=== PATIENT | male | born 1950 | race Caucasian/White ===

== ENCOUNTER 2016-11-30 10:42 | Day surgery (SDC) | payer MEDICARE ==
[~2016-11-30] VITALS: Ht 177.8 cm; Wt 98.9 kg
[~2016-11-30 10:42] MED LIST: AMLO10TA5 PO; ASPI-973 PO; CHOL500011 PO; CLOP75TA3 PO; CYAN500T53 SL; GABA-502 PO; LEVO75TA4 PO; LISI-571 PO; Lactated Ringer's 1,000 ML IV ONE; OMEP20CA11 PO; TIZA2CAP9 PO; TIZA4TAB4 PO
[2016-11-30] MEDS ORDERED: Propofol 10,000 mCg/mL 20 mL Inj ONE (10:43)
[2016-11-30 11:07] VITALS: BP 160/87; PULSE 67; RESP 16; O2SAT 96
[2016-11-30] MEDS ORDERED: Ondansetron 2 mg/mL 2 mL Inj IVPUSH PRN (11:25)
[2016-11-30] MEDS ORDERED: MetoCLOpramide 5 mg/mL 2 mL Inj IVPUSH PRN (11:25)
[2016-11-30] MEDS ORDERED: Lactated Ringer's 1,000 ML IV SCH (11:25)
[2016-11-30 11:59] VITALS: BP 149/81; PULSE 67; RESP 17; O2SAT 96
[2016-11-30 12:09] VITALS: BP 122/74; PULSE 77; RESP 15; O2SAT 96
[2016-11-30 12:19] VITALS: BP 164/85; PULSE 62; RESP 16; O2SAT 96
--- NOTE | 2016-11-30 16:45 | PCM.HPANE ---
Patient Data Surgeon Admitting Provider: Attending Provider:Pedrito Recinos MD Primary Care Physician:Ricky Green MD Other Provider:[facility] Reason for Visit Rectal Bleeding Ht/WT & BMI Height (Feet): 5 Height (Inches): 10 Weight (Kilograms): 98.88 Body Mass Index 31.00 Allergies Coded Allergies: No Known Allergies (Verified , 11/27/16) Uncoded Allergies: No Known Allergies (Allergy, Unknown, 09/26/03) Past Anesthesia History Anesthesia History: Positive for:: Abnormal Airway, Difficult Intubation, Denies:: Anesthesia Reactions, Fam Anesthesia Reaction, Fam Malignant Hypertherm, Malignant Hyperthermia Diabetes History Hx Diabetes?: No MRSA MRSA: No Medications Blood Thinner: Plavix Last Dose Blood Thinner: Nov 24, 2016 Reported Medications Clopidogrel Bisulfate (Plavix)75 Mg Jvqiqf68 Mg PO DAILY 30 Days Ref 0 11/27/16 Cholecalciferol (Vitamin D3) (Vitamin D3)5,000 Unit Tablet5,000 Unit PO DAILY 11/27/16 Cyanocobalamin (Vitamin B-12) (Vitamin B-12)500 Mcg Tab.[id number] Mcg SL 11/27/16 Tizanidine 4 Mg Tablet4 Mg PO q6 11/27/16 Tizanidine 2 Mg Capsule2 Mg PO 11/27/16 Levothyroxine 75 Mcg Ddsyhj71 Mcg PO DAILY Ref 0 11/27/16 Gabapentin 300 Mg Rbjiffm082 Mg PO DAILY Ref 0 11/27/16 Omeprazole 20 Mg Capsule.dr20 Mg PO BID Ref 0 11/27/16 Lisinopril 5 Mg Tablet5 Mg PO DAILY #30 TABLET Ref 0 11/27/16 Aspirin 81 Mg Sfrmlj73 Mg PO DAILY Ref 0 11/27/16 Amlodipine (Norvasc)10 Mg Gipkgx14 Mg PO DAILY Ref 0 11/27/16 Discontinued Reported Medications Sotalol Hcl-Expunged Drug, Do Not Renew! (Betapace-Expunged Drug, Do Not Renew!) 120 Mg Ourrwq313 Mg PO 05/31/12 Aspirin-Expunged Drug, Do Not Renew! 325 Mg Jawvmx830 Mg PO DAILY 07/08/10 Clopidogrel-Expunged Drug, Do Not Renew! (Plavix-Expunged Drug, Do Not Renew!) 75 Mg Izwoow77 Mg PO DAILY 07/08/10 Simvastatin-Expunged Drug, Choose New Med! 40 Mg Jofryp57 Mg PO HS 07/08/10 Lisinopril-Expunged Drug, Do Not Renew! 20 Mg Glnazg13 Mg PO DAILY 07/08/10 oxyCODONE-Expunged, Do Not Renew! 5 Mg Tablet5 Mg PO QID PRN 07/08/10 AmLODIPine-Expunged Drug, Do Not Renew! 10 Mg Mxnjef84 Mg PO DAILY 07/08/10 History History of ENT Problems?: No HEENT History: Denies:: Abnormal Airway Cataracts Difficult Intubation Dysphagia Glaucoma Hearing Problem Sinus Problem TMJ Denture Type: None Teeth Condition: Within Normal Limits Hx of Heart Problems?: Yes Cardiovascular History: Positive for:: Cardiac Surgery (CABG 2001) Chest Pain Hypertension Denies:: AICD Abdominal Aortic Aneurism Atrial Fibrillation Congestive Heart Failure Coronary Artery Disease Edema Heart Murmur Irregular Heartbeat Pacemaker Peripheral Vascular Rheumatic Fever Thrombophlebitis Valvular Heart Disease Hx of Respiratory Problem?: No Respiratory History: Denies:: Asthma COPD Chest Surgery Cough Dyspnea Emphysema Hemoptysis Oxygen Administration Pneumonia Pulmonary Embolism Tuberculosis Use of C-PAP Machine Use of Inhalers / NEBS Hx Neurologic Problems?: No Neurological History: Denies:: Alzheimer's Disease CVA Dementia Dizziness Headaches Multiple Sclerosis Parkinson's Disease Peripheral Neuropathy Seizures TIA Hx of GI Problems?: Yes Gastrointestinal History: Denies:: Cirrhosis Diverticulitis Gall Bladder Disease Gastroesphageal Reflux Gastrointestinal Bleeding Heartburn Hepatitis Hiatal Hernia Liver Disease Rectal Bleeding Hx of Problems?: Yes Genitourinary History: Denies:: HX of Hemodialysis Kidney Stones Urinary Tract Infection HX of Peritoneal Dialysis: No Male Hx: Denies:: Prostate Problems Scrotal Mass Testicular Surgery Skin History: Denies:: History Skin Disorders? Pressure Ulcers Hx Musculoskeletal Problems?: Yes Musculoskeletal History: Positive for:: Joint Replacement (KNEE, LEFT) Denies:: Back Injury Degenerative Joint Fibromyalgia Musculoskeletal Trauma Myasthenia Gravis Osteoarthritis Rheumatoid Arthritis Systemic Lupus Hx of Psycho/Social Problems?: No Psycho Social History: Denies:: Anxiety Bipolar Disorder Hx Depression Suicide Attempt Hx Surgeries?: Yes (4way cabg, r hip, l knee, r ankel) Hx Any Other Health Problems?: No Other History: Positive for:: Hospitalization Thyroid Disease (PARATHYROID) Denies:: Cancer Endocrine Disease History Blood Transfusions: Positive for:: Blood Transfusions Denies:: Blood Transfuse Reaction Hx Diabetes: No Hx Alcohol Use: Yes (daily)Hx Substance Use: NoHave You Smoked inLast 12 mo: No Stop/Bang Treated for Sleep Apnea?: Yes Do You Have a CPAP Machine?: No Risk Assessment Category Category 1A: Patient has history of documented sleep apnea, and HAS NOT received any narcotic, sedative or anesthesia administration during this stay. Category 1B: Patient has history of documented sleep apnea, and HAS received any narcotic , sedative or anesthesia administration during this stay Category 2: Patient has SUSPECTED Obstructive Sleep Apnea, and HAS received any narcotic , sedative or anesthesia administration during this stay. Category 3: Patient has SUSPECTED Obstructive Sleep Apnea and HAS NOT received narcotic, sedative or anesthesia administration during this stay. Category 4: Outpatient in Procedural Areas with known sleep apnea or who screen positive for High Risk via the STOP/BANG questionnaire. Exam Exam Vital Signs Vital Signs Date Time Temp Pulse Resp B/P Pulse Ox O2 Delivery O2 Flow Rate FiO2 11/30/16 11:07 67 16 160/87 96 Room Air General Appearance: Alert, Oriented X3, Cooperative, No Acute Distress HEENT/AIRWAY: MP 2, Neck Movement (FROM), Mouth Opening (3 FBMO) Lungs: Clear to Auscultation, Normal Air Movement Heart: Exam Unremarkable, Regular Rate/Rhythm, No Murmurs/Rubs/Gallops Meds/Labs/Diagnostics Admission Meds Current Medications Lactated Ringer's (Lr) 1,000 ml @ 10 mls/hr Q24H ONCE IV Last administered on 11/30/16 11:23; Start 11/30/16 at 06:00; Stop 12/01/16 at 05:59 Plan Impression Patient chart reviewed, patient interviewed and anesthestic plan with risks, benefits, and alternatives discussed, and informed consent obtained. NPO per Anesth. Guidelines: Yes ASA Physical Status: ASA3 Severe Disease (CAD s/p CABG) Anesthetic Plan: MAC Bene/Risks/Altern/Consents: Yes HP Complete Prior to Induction: Yes Kiet Gutierrez MD Nov 30, 2016 11:25
--- NOTE | 2016-11-30 16:45 | PCM.ANEP1 ---
Post Anesthesia PACU Phase 1 Assessment Vital Signs Vital Signs Date Time Temp Pulse Resp B/P Pulse Ox O2 Delivery O2 Flow Rate FiO2 11/30/16 12:19 62 16 164/85 96 Room Air 11/30/16 12:09 77 15 122/74 96 Room Air 11/30/16 11:59 67 17 149/81 96 Room Air 11/30/16 11:07 67 16 160/87 96 Room Air Anesthetic Administered: GA Level of Alertness: Awake, talking STREET's with Equal Strength: Yes Pain: No Nausea or Vomiting: No CV Function & Hydration Stable: No Airway Device: N/A Oxygen Delivery: Room Air Lungs: Clear to Auscultation, Normal Air Movement Dermatome Level: Full Sensation PACU Phase 2 Assessment Complications: No Follow up Care: N/A Patient Instructions Provided: N/A Kiet Gutierrez MD Nov 30, 2016 16:45
--- NOTE | 2016-11-30 21:00 | ENDO ---
[address] [address] ENDOSCOPY PROCEDURE PATIENT: MATTHEW NIEVES : 1950 MR#: [id number] ADMIT: 11/30/2016 JOB ID: [id number] DATE: 11/30/2016 PRIMARY PROVIDER: Ricky Green MD. PROCEDURE: Colonoscopy. INDICATIONS: A 66-year-old male with intermittent red blood per rectum. He has a history of colon polyps. EQUIPMENT: PCF-H180AL. SEDATION: Monitored anesthesia as provided by Dr. Kiet Gutierrez. COMPLICATIONS: None identified. BOWEL PREPARATION: Fair. PROCEDURE INFORMATION: After the risks and benefits were explained, written and verbal informed consent was obtained, the patient was brought into the endoscopy suite and placed into the left lateral decubitus position. Sedation was achieved as above. A digital rectal examination accomplished. No significant pathology appreciated apart from some moderate internal hemorrhoids. Nothing thrombosed. No mass lesions. There was some mild bleeding induced just from the rectal exam. The scope was introduced into the rectum and advanced to the cecum as identified by the appendiceal orifice and ileocecal valve. The scope was slowly withdrawn to carefully examine the mucosa for any defects or lesions. Retroflexed views were accomplished in the rectum. The colon was decompressed. The scope removed from the patient who tolerated the procedure well. FINDINGS: Moderately engorged internal hemorrhoids. Right at the dentate line, there was also superficial vascularity and some of this was involved in the oozing of blood during the case, as described above. No sustained bleeding. I did not see any evidence of proctitis. No mass lesions. No significant polyps or other pathology throughout. ENDOSCOPIC DIAGNOSIS: 1. Moderate internal hemorrhoids. 2. Otherwise visually unremarkable colonoscopy. RECOMMENDATIONS: 1. Considering past history of colon polyps, repeat colonoscopy five years. 2. The patient is encouraged to engage in regular warm Epsom salt baths over the next week. 3. He is also encouraged to trial preparation H suppository therapy following bowel movements for the next week. 4. If bleeding symptoms persist, then unfortunately, he will need to have a sit-down discussion with one of our surgeons.
== END 2016-11-30 23:59 | disposition home or self-care (01) ==
LOC: END 10:42
PROVIDERS: ATTEND Internal Medicine Gastroenterology
DX: K62.5 Hemorrhage of anus and rectum (principal); K64.8 Other hemorrhoids; Z86.010 Personal history of colon polyps; K59.00 Constipation, unspecified; I25.10 Atherosclerotic heart disease of native coronary artery without angina pectoris; G47.33 Obstructive sleep apnea (adult) (pediatric); Z95.1 Presence of aortocoronary bypass graft; Z79.82 Long term (current) use of aspirin; Z79.01 Long term (current) use of anticoagulants
CPT/HCPCS: 45378; J7120